=== PATIENT | female | born 1980 | race Caucasian/White ===

== ENCOUNTER 2018-03-12 12:48 | Inpatient (IN) | payer OTHER ==
[~2018-03-12] VITALS: Ht 144.8 cm; Wt 55.3 kg
[~2018-03-12 12:48] MED LIST: HUMIRA PEN40 MG/0.2; HYOSCYAMINE0.125 M1 SL; OXYC1TAB9 PO; PREDNISONE20 MG PO; PRILOSEC OTC20 MG PO
== END 2018-04-19 19:24 | disposition home or self-care (01) | DRG 331 ==
LOC: ADM 03-31 09:30 → EDSTATUS 04-08 12:00 → SURG 04-14 08:45 → O/R 04-14 08:45 → SURG 04-14 21:15 → SURH 04-17 12:00 → SURG 04-19 19:24
PROVIDERS: Surgery
PROC: 0D1B4Z4 Bypass Ileum to Cutaneous, Percutaneous Endoscopic Approach (ICD-10-PCS; 2018-04-14)
PROC: 0DTP4ZZ Resection of Rectum, Percutaneous Endoscopic Approach (ICD-10-PCS; principal; 2018-04-14 07:00)
DX: K51.811 Other ulcerative colitis with rectal bleeding (principal); K51.011 Ulcerative (chronic) pancolitis with rectal bleeding; D50.0 Iron deficiency anemia secondary to blood loss (chronic); Z79.52 Long term (current) use of systemic steroids

== ENCOUNTER 2018-07-24 15:00 | Inpatient (IN) | payer OTHER ==
[~2018-07-24] VITALS: Ht 144.8 cm; Wt 52.6 kg
[2018-07-31] MEDS ORDERED: OXYC1TAB9 PO (11:47)
[2018-07-31] MEDS ORDERED: INTESTINEX680 M1 PO (11:47)
== END 2018-07-31 15:00 | disposition home or self-care (01) | DRG 331 ==
LOC: SURH 07-28 05:58 → O/R 07-28 05:58 → SURG 07-28 10:58 → SURH 07-28 14:31
PROVIDERS: Surgery
PROC: 0DQB4ZZ Repair Ileum, Percutaneous Endoscopic Approach (ICD-10-PCS; principal; 2018-07-28 21:00)
DX: K51.011 Ulcerative (chronic) pancolitis with rectal bleeding (principal); Z43.2 Encounter for attention to ileostomy

== ENCOUNTER 2018-08-02 22:26 | Emergency (ER) | payer OTHER ==
[~2018-08-02] VITALS: Ht 152.4 cm; Wt 54.4 kg
[~2018-08-02 22:26] MED LIST changes: +INTESTINEX680 M1 PO
== END 2018-08-02 22:51 | disposition home or self-care (01) ==
LOC: ER 22:26
DX: Z48.815 Encounter for surgical aftercare following surgery on the digestive system (principal)